=== PATIENT | female | born 1980 | race African-American/Black ===

== ENCOUNTER 2023-10-12 08:41 | Outpatient (CLI) | payer BC | END 2023-10-12 08:42 | disposition home or self-care (01) | LOC: CSHMAMMO 08:41 | PROVIDERS: ATTEND Student in an Organized Health Care Education/Training Program | DX: Z12.31 Encounter for screening mammogram for malignant neoplasm of breast (principal); Z80.3 Family history of malignant neoplasm of breast | CPT/HCPCS: 77063; 77067 ==

== ENCOUNTER 2025-04-23 14:25 | Outpatient (CLI) | payer BC | END 2025-04-23 14:26 | disposition home or self-care (01) | LOC: CSHMAMMO 14:25 | PROVIDERS: ATTEND Student in an Organized Health Care Education/Training Program | DX: Z12.31 Encounter for screening mammogram for malignant neoplasm of breast (principal); N64.89 Other specified disorders of breast | CPT/HCPCS: 77063; 77067 ==